=== PATIENT | male | born 1980 | race African-American/Black ===

== ENCOUNTER 2023-10-04 02:43 | Emergency (ER) | payer OTHER ==
[~2023-10-04] VITALS: Ht 193 cm; Wt 142.0 kg
[2023-10-04 02:57] VITALS: TEMP 98.4
[2023-10-04 04:38] VITALS: BP 114/57; PULSE 97; RESP 20
== END 2023-10-04 04:41 | disposition home or self-care (01) ==
LOC: EMS 02:46
DX: I10 Essential (primary) hypertension (principal); F17.210 Nicotine dependence, cigarettes, uncomplicated
CPT/HCPCS: 99283; Z7502